=== PATIENT | male | born 1990 | race Caucasian/White ===

== ENCOUNTER 2019-04-22 13:12 | Emergency (ER) | payer SELFPAY ==
[2019-04-22] MEDS ORDERED: IBUPROFEN 600 MG TABLET PO ONE (14:14)
--- NOTE | 2019-04-22 14:39 | RADIOLOGY REPORT (SQ) ---
EXAM DESCRIPTION: SHOULDER LEFT 2 OR MORE VIEWS COMPLETED DATE/TIME: 04/22/2019 2:31 pm REASON FOR STUDY: injury, pain COMPARISON: None. NUMBER OF VIEWS: Three views. TECHNIQUE: Internal rotation, external rotation, and Y view images acquired of the left shoulder. LIMITATIONS: None. FINDINGS: MINERALIZATION: Normal. BONES: No acute fracture. No worrisome bone lesions. JOINTS: No dislocation. VISUALIZED LUNGS AND RIBS: No pneumothorax. No rib fracture. SOFT TISSUES: No radiopaque foreign body. OTHER: No other significant finding. IMPRESSION: NEGATIVE STUDY OF THE LEFT SHOULDER. NO RADIOGRAPHIC EVIDENCE OF ACUTE INJURY. TECHNICAL DOCUMENTATION: JOB ID: [id number] [employer]- All Rights Reserved Reading location - IP/workstation name: [email or web address]
[2019-04-22 15:17] VITALS: BP 124/61
--- NOTE | 2019-04-22 15:59 | ER Document Report ---
HPI - HPI Time Seen by Provider: 04/22/19 14:07 Pain Level: 3 Notes: 29-year-old male patient presents emergency department chief complaint of the shoulder pain. Patient reports he was playing basketball when he jumped up had his arm up in the air and another player came down on his shoulder. He states he felt a popping sensation. He states this occurred last night. He was requesting x-rays at this time. - CONSTITUTIONAL Constitutional: DENIES: Fever, Chills - REPRODUCTIVE Reproductive: DENIES: : - MUSCULOSKELETAL Musculoskeletal: REPORTS: Extremity pain Past Medical History - General Information source: Patient - Social History Smoking Status: Never Smoker Frequency of alcohol use: None Drug Abuse: Marijuana Family History: Reviewed & Not Pertinent Patient has suicidal ideation: No Patient has homicidal ideation: No - Medical History Medical History: Negative Surgical Hx: Negative - Immunizations Immunizations up to date: Yes Hx Diphtheria, Pertussis, Tetanus Vaccination: Yes Vertical Provider Document - CONSTITUTIONAL Notes: PHYSICAL EXAMINATION: GENERAL: Well-appearing, well-nourished and in no acute distress. HEAD: Atraumatic, normocephalic. EYES: Pupils equal round extraocular movements intact, conjunctiva are normal. ENT: Nares patent NECK: Normal range of motion LUNGS: No respiratory distress Musculoskeletal: Normal range of motion to left shoulder, no crepitus or deformity on palpation. Tenderness to palpation to anterior and lateral left shoulder, strong radial pulse, normal motor and sensation distally. NEUROLOGICAL: Normal speech, normal gait. PSYCH: Normal mood, normal affect. SKIN: Warm, Dry, normal turgor, no rashes or lesions noted. - INFECTION CONTROL TRAVEL OUTSIDE OF THE [place] IN LAST 30 DAYS: No Course - Re-evaluation Re-evalutation: Shoulder X-Ray 04/22/19 14:15 IMPRESSION: NEGATIVE STUDY OF THE LEFT SHOULDER. NO RADIOGRAPHIC EVIDENCE OF ACUTE INJURY. - Vital Signs Vital signs: Temp Pulse Resp BP Pulse Ox 98.3 F 65 18 124/61 98 04/22/19 15:17 04/22/19 15:17 04/22/19 15:17 04/22/19 15:17 04/22/19 15:17 Discharge - Discharge Clinical Impression: Injury of left shoulder Qualifiers: Encounter type: initial encounter Qualified Code(s): S49.92XA - Unspecified injury of left shoulder and upper arm, initial encounter Condition: Stable Disposition: HOME, SELF-CARE Additional Instructions: Exercise Program for the Shoulder Since the shoulder moves in so many directions, the joint attachment is weak. Muscles provide most of the stability to the shoulder. You must exercise your shoulder to prevent painful instability or stiffening. PASSIVE - These may be begun within a few days of the injury. While standing, lean forward, allowing the arm to hang down towards the floor. Move the arm in small circles while slowly twisting your chest towards and away from the hanging arm. Do this for one minute. ACTIVE - These may be performed when the doctor gives permission. Begin with the arms at the sides. Raise the arms forward (shoulder's width apart) until they reach shoulder level. Then slowly swing both arms back until they are aiming straight out away from each other. Then bring them forward again, and finally, lower them to your sides. Repeat 20 to 30 times. As you improve, put weights in your hands for the exercise. Start with one pound, and work up to 10 pounds. Never use more than is comfortable. Athletes may work up to 30 pounds. Your x-ray was negative today. The does not necessarily rule out a ligament injury or a rotator cuff injury. Please take ibuprofen 600 mg every 6 hours. Use Derby for severe pain only. Consider following up with an orthopedic doctor if not improving over the next week. Prescriptions: Hydrocodone/Acetaminophen [Derby 5-325 mg Tablet] 1 tab PO Q6H #12 tablet Referrals: SHERIN LERNER JR, DO [ACTIVE PROVISIONAL STAFF] - Follow up as needed CLAUDY GANDHI MD [ACTIVE STAFF] - Follow up as needed
== END 2019-04-22 16:05 | disposition home or self-care (01) ==
LOC: ER 13:12
DX: S49.92XA Unspecified injury of left shoulder and upper arm, initial encounter (principal); X58.XXXA Exposure to other specified factors, initial encounter; Y93.67 Activity, basketball
CPT/HCPCS: 99283

== ENCOUNTER 2020-03-09 05:13 | Emergency (ER) | payer SELFPAY ==
[2020-03-09] MEDS ORDERED: IBUPROFEN 800 MG TABLET PO ONE (06:36)
--- NOTE | 2020-03-09 06:56 | RADIOLOGY REPORT (SQ) ---
EXAM: KNEE RIGHT 4 VIEWS CLINICAL DATA: 30 years Male swelling tenderness TECHNICAL DATA: 4 x-ray views of the right knee were performed on 03/09/2020 at 6:23 AM. COMPARISONS: None FINDINGS: There is no evidence of fracture or dislocation. There is no significant arthritis or degenerative change. There is minimal narrowing of the medial joint compartment. There is a sharply marginated lytic lesion within the superior lateral pole of the patella with a sclerotic rim most consistent with a dorsal defect of the patella, a normal developmental variant. No additional focal lytic or sclerotic bone lesions are identified. Bone mineralization is normal. No definite focal soft tissue abnormalities are identified. IMPRESSION: 1. No evidence of acute osseous injury. 2. Minimal narrowing of the medial joint compartment. 3. Lytic lesion within the superior lateral patella most consistent with a dorsal defect of the patella, a normal developmental variant.
--- NOTE | 2020-03-09 07:05 | ER Document Report ---
Entered by CHAR BARAJAS SCRIBE 03/09/20 0622 Acting as scribe for:KATINA JOE MD ED Extremity Problem, Lower - General Chief Complaint: Knee Pain Stated Complaint: RIGHT KNEE INJURY Time Seen by Provider: 03/09/20 06:14 Information source: Patient Notes: This 30 year old male patient presents to the emergency department today with complaints of pain and swelling to his right knee after twisting it during a game of basketball x2 days ago. Patient reports using ice, elevating his knee, and taking Motrin x1 yesterday. Patient states his pain is 3/5 at rest and is exacerbated with flexion of his knee. Patient states he is able to ambulate but with a limp and denies any other injury. Denies any significant medical or surgical history. TRAVEL OUTSIDE OF THE [place] IN LAST 30 DAYS: No - Related Data Allergies/Adverse Reactions: No Known Allergies Allergy (Verified 10/15/14 19:20) Past Medical History - General Information source: Patient - Social History Smoking Status: Current Some Day Smoker Cigarette use (# per day): Yes Chew tobacco use (# tins/day): No Frequency of alcohol use: None Drug Abuse: Marijuana Family History: Reviewed & Not Pertinent - Medical History Medical History: Negative Surgical Hx: Negative - Immunizations Immunizations up to date: Yes Hx Diphtheria, Pertussis, Tetanus Vaccination: Yes Review of Systems - Review of Systems Constitutional: No symptoms reported EENT: No symptoms reported Cardiovascular: No symptoms reported Respiratory: No symptoms reported Gastrointestinal: No symptoms reported Genitourinary: No symptoms reported Male Genitourinary: No symptoms reported Musculoskeletal: See HPI, Joint pain - R knee, Joint swelling - R knee Skin: No symptoms reported Hematologic/Lymphatic: No symptoms reported Neurological/Psychological: No symptoms reported -: Yes All other systems reviewed and negative Physical Exam - Vital signs Vitals: Temp Pulse Resp BP Pulse Ox 98.1 F 80 16 134/64 H 100 03/09/20 05:21 03/09/20 05:21 03/09/20 05:21 03/09/20 05:21 03/09/20 05:21 - General General appearance: Appears well, Alert - HEENT Head: Normocephalic, Atraumatic Eyes: Normal Pupils: PERRL - Respiratory Respiratory status: No respiratory distress Chest status: Nontender Breath sounds: Normal Chest palpation: Normal - Cardiovascular Rhythm: Regular Heart sounds: Normal auscultation Murmur: No - Abdominal Inspection: Normal Distension: No distension Bowel sounds: Normal Tenderness: Nontender - Extremities General upper extremity: Normal inspection, Normal ROM Notes: Soft tissue swelling to the anterior right knee. No significant deformity. Limited range of motion and able to flex the knee by 50%. Skin has normal temperature and color, with no open wounds. - Neurological Neuro grossly intact: Yes Cognition: Normal Orientation: AAOx4 [place] Coma Scale Eye Opening: Spontaneous [place] Coma Scale Verbal: Oriented [place] Coma Scale Motor: Obeys Commands [place] Coma Scale Total: 15 Speech: Normal Sensory: Normal - Psychological Associated symptoms: Normal affect, Normal mood - Skin Skin Temperature: Warm Skin Moisture: Dry Skin Color: Normal Course - Re-evaluation Re-evalutation: 03/09/20 07:00 Patient resting comfortably feeling better now that knee immobilizer is Harley wrap is in place. Patient has neuromotor circulatory intact after the placement of the Harley wrap and the knee immobilizer. - Vital Signs Vital signs: Temp Pulse Resp BP Pulse Ox 98.1 F 80 16 134/64 H 100 03/09/20 05:21 03/09/20 05:21 03/09/20 05:21 03/09/20 05:21 03/09/20 05:21 03/09/20 07:00 Vital signs stable - Laboratory Results Critical Laboratory Results Reviewed: No Critical Results - Radiology Results Radiology Results Interpreted: 03/09/20 07:01 Knee X-Ray 03/09/20 06:01 IMPRESSION: 1. No evidence of acute osseous injury. 2. Minimal narrowing of the medial joint compartment. 3. Lytic lesion within the superior lateral patella most consistent with a dorsal defect of the patella, a normal developmental variant. Right knee x-ray shows no osseous injury some narrowing of the medial joint compartment and what appears to be a normal developmental variant versus a lytic lesion in the superior lateral patella. Patient will be requested to follow-up with orthopedic doctors regarding his knee sprain and pain. Critical Radiology Results Reviewed: No Critical Results Discharge - Discharge Clinical Impression: Right knee sprain Condition: Stable Disposition: HOME, SELF-CARE Instructions: Knee Immobilizing Splint ([facility]), Sprained Knee ([facility]) Prescriptions: Ibuprofen [Motrin 800 mg Tablet] 800 mg PO Q8H PRN #21 tablet PRN Reason: pain Forms: Return to Work Referrals: REZA NAZARIO DO [ACTIVE STAFF] - Follow up in 3-5 days I personally performed the services described in the documentation, reviewed and edited the documentation which was dictated to the scribe in my presence, and it accurately records my words and actions.
[2020-03-09 07:14] VITALS: BP 129/76
== END 2020-03-09 07:12 | disposition home or self-care (01) ==
LOC: ER 05:13
DX: S83.91XA Sprain of unspecified site of right knee, initial encounter (principal); X50.1XXA Overexertion from prolonged static or awkward postures, initial encounter; Y93.67 Activity, basketball; F17.210 Nicotine dependence, cigarettes, uncomplicated; F12.10 Cannabis abuse, uncomplicated
CPT/HCPCS: 99283